=== PATIENT | male | born 1980 | race Caucasian/White ===

== ENCOUNTER → 2018-11-27 | Day surgery (SDC) | payer OTHER ==
--- NOTE | 2018-11-26 04:59 | Pre Op History & Physical ---
DATE OF SURGERY: November 27, 2018. CHIEF COMPLAINT: Lesion in the left cheek and lesion in the left floor of the mouth. HISTORY OF PRESENT ILLNESS: This 38-year-old male was noted to have a lesion in the left cheek around the area of the puncta of the left parotid gland, which is more swollen. The patient denies any dysphagia, odynophagia, or shortness of breath. He has no trouble swallowing. The patient did have radiation to the nose for tumor, that was treated about 3 years ago. The record for the treatment has not arrived. The patient on examination in the office was also noted to have a lesion in the left floor of the mouth. He smokes about 10 cigars a day and a social drinker. REVIEW OF SYSTEMS: System review showed no recent cardiovascular, respiratory, or GI problem. PAST MEDICAL HISTORY: The patient has no significant medical problem in the past. 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 PAST SURGICAL HISTORY: The patient has previous bilateral shoulder surgery, right knee surgery, and removal of testicular cancer. ALLERGIES: THE PATIENT IS ALLERGIC TO ASPIRIN, WHICH GIVES HIM SWELLING. MEDICATIONS: He is on testosterone. SOCIAL HISTORY: He smokes about 10 cigars a day and is a social drinker. FAMILY HISTORY: Noncontributory. PHYSICAL EXAMINATION: VITAL SIGNS: On examination, the patient's vital signs were within normal limits. HEENT: Ear exam show normal tympanic membranes bilaterally. Nasal exam showed no obvious abnormality. 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 No abnormality was palpable. NECK: Showed no lymph node or thyroid palpable. CHEST: Showed good air entry bilaterally. CARDIOVASCULAR: Showed S1, S2. No murmur noted. ASSESSMENT AND PLAN: Mr. Duff has questionable lesion in the left floor of the mouth and the swelling around the left parotid puncta. He had a CT scan of the neck with contrast, which did not show any obvious abnormality. Because of the patient's previous history, suggested treatment is panendoscopy, biopsy, and other necessary procedure. Complication of procedure includes, but not limited to bleeding, infection, perforation of the esophagus, pneumomediastinum, mediastinitis, airway compromise, persistent recurrence of the problem. The alternate will be continue observation, continue antibiotic therapy, biopsy of the lesion in the office setting. The patient has elected to undergo surgical procedure. MD ROSARIO Almaguer/CLAU /[id number]
[~2018-11-27] MED LIST: ANASTROZOLE1 MG PO; DESFLURANE 240 ML BTL INH ONE; DEXAMETHASONE SOD PHOS INJ 4 MG/ML VIAL ONE; FENTANYL CITRATE/PF 100MCG/2 ML INJ ONE; GLYCOPYRROLATE INJ 1MG/ 5 ML SYR ONE; KETOROLAC TROMETHAMINE 30 MG/ML VIAL ONE; LIDOCAINE 1% W/EPINEPHRINE 20 ML VIAL ONE; MIDAZOLAM HCL 2 MG/2 ML VIAL ONE; NEOSTIGMINE 5 MG/5ML SYR ONE; ONDANSETRON HCL INJ 2MG/ML 2ML 2 MG/ML VIAL ONE; OXYMETAZOLINE HCL 0.05% NAS 1 SPRAY BTL ONE; PROPOFOL IV EMULSION 10 MG/ML 20 ML VIAL ONE; ROCURONIUM BROMIDE 10 MG/ML 5ML VIAL ONE; TESTOSTERONE5 GM INJ
[2018-11-27 11:15] VITALS: BP 134/83
--- NOTE | 2018-11-27 12:02 | Operative Report ---
DATE OF PROCEDURE: 11/27/2018 SURGEON: Omar Gilbert MD CHIEF COMPLAINT: Lesion on the left cheek and lesion in the floor of the mouth. POSTOPERATIVE DIAGNOSIS: Lesion on the left cheek and lesion in the floor of the mouth. OPERATIVE PROCEDURES: Direct laryngoscopy, rigid esophagoscopy, rigid bronchoscopy, and biopsy of the left cheek and left floor of the mouth. ANESTHESIA: Anesthesiology Group. INDICATIONS: This 38-year-old male was noted to have increased swelling around the opening of the parotid duct on the left side. The patient had previous radiation to the nose for tumor. On examination, he was noted to have a hypertrophy of the puncta of the left parotid duct and some leukoplakia in the floor of the mouth on the left side. It was decided that panendoscopy, microlaryngoscopy, and other necessary procedure will be beneficial for him. The patient had a CAT scan of the neck with contrast prior to surgery, which did not show any abnormality. DESCRIPTION OF PROCEDURE: The patient was taken to the operating room, put under general anesthesia, and endotracheally intubated. The patient was positioned and rigid esophagoscopy was performed. The esophagoscope was passed through the cricopharyngeus muscle. The esophagus was examined to about 25 cm from the incisor. No abnormality was noted. The esophagoscope was retrieved. The rigid bronchoscopy was performed. A size #4 bronchoscope with Simental wire was used. The bronchoscope was passed parallel to the endotracheal tube. The endotracheal tube cuff was deflated. Trachea was examined down to the [place]. No abnormality was noted. The bronchoscope was retrieved. Endotracheal tube cuff was reinflated. The direct laryngoscopy was performed. Using a Dedo laryngoscope, the oropharynx and oral cavity were examined. The puncta were noted to be more hypertrophy on the left side and increased irregularity was noted in the floor of the mouth on the left. Piriform sinus on either side was examined. No abnormality was noted. The larynx was examined. Both the true and false vocal folds were examined. No abnormality was noted. The McIvor mouth gag was inserted into the mouth. The left cheek was examined. This was biopsied using cup forceps. Care was taken during the biopsy not to create any stenosis along the puncta, the parotid duct on the left side. Biopsy was done anterior to the parotid duct. The biopsy was done anterior to the parotid puncta. The floor of the mouth was examined. The small area of leukoplakia was noted. This was biopsied using a cup forceps. Again, this tissue was sent for permanent section. The patient tolerated the above procedure well with minimal blood loss. The patient was able to be transferred to recovery room in stable condition. He was given 20 mg of Decadron intraoperatively. MD ROSARIO Almaguer/CLAU /[id number]
== END | disposition home or self-care (01) ==
LOC: OR 06:55
PROVIDERS: ATTEND Otolaryngology Otolaryngology/Facial Plastic Surgery
DX: K13.21 Leukoplakia of oral mucosa, including tongue (principal); F17.290 Nicotine dependence, other tobacco product, uncomplicated; Z85.828 Personal history of other malignant neoplasm of skin; Z85.47 Personal history of malignant neoplasm of testis
CPT/HCPCS: 11106; 31525; 31622; 41108; 43191; 88305; J1100; J1885; J2250; J2405; J2704; J3010; J3490